=== PATIENT | female | born 1985 | race Caucasian/White ===

== ENCOUNTER 2017-10-16 07:53 | Emergency (ER) | payer SELFPAY ==
[~2017-10-16 07:53] MED LIST: DICL-86 PO; LORT5TAB PO; PENI500T PO; Z.0.NO CURRENT MEDS
[2017-10-16 07:55] VITALS: BP 115/67; PULSE 72; RESP 16; TEMP 98.5; O2SAT 96
[2017-10-16] MEDS ORDERED: RISP1 PO (08:10)
[2017-10-16] MEDS ORDERED: BUSP10TA PO (08:10)
[2017-10-16] MEDS ORDERED: TRAZ100T10 PO (08:10)
[2017-10-16] MEDS ORDERED: CLIN300C5 PO (08:13)
--- NOTE | 2017-10-16 08:13 | PD ---
HPI . Facial swelling Chief Complaint: Oral / Dental Pain or Problem Time Seen by Provider: 08:05 Travel History International Travel<30 days: No Contact w/Intl Traveler<30days: No Traveled to known affect area: No History of Present Illness HPI Patient presents with a chief complaint of a toothache. It started a few days ago. She developed facial swelling yesterday. Symptoms are getting progressively worse. Pain is rated 7/10. There are no modifying factors. No known associated fevers. PFSH Past Medical History Arthritis: Yes Blood Disorders: No Cancer: No Cardiovascular Problems: No Diminished Hearing: No Endocrine: No Gastrointestinal Disorders: No Genitourinary: No Immune Disorder: No Implanted Vascular Access Dvce: Yes Musculoskeletal: Yes Neurologic: No Psychiatric: No Reproductive: No Respiratory: No Tetanus Vaccination: Unknown ?: Not : 3 Para: 3 Miscarriage: 0 : 0 Tubal Ligation: Yes Past Surgical History Abdominal Surgery: No Body Medical Devices: titanium rods hip to knee Cardiac Surgery: No Section: Yes (X 3) Ear Surgery: No Endocrine Surgery: No Eye Surgery: No Genitourinary Surgery: No Gynecologic Surgery: No Neurologic Surgery: No Oral Surgery: Yes (CHIPPED TEETH) Pacemaker: No Thoracic Surgery: No Tonsillectomy: Yes Other Surgery: Yes (Pelvis graft to my femur) Social History Alcohol Use: Yes ("ONCE A WEEK") Tobacco Use: Yes ("ABOUT 5 CIGS PER DAY") Substance Use: No Allergies-Medications (Allergen,Severity, Reaction): Coded Allergies: morphine (Verified Allergy, Severe, n/v, 10/16/17) latex (Verified Allergy, Mild, Rash/HIVES, 10/16/17) Reported Meds & Prescriptions Reported Meds & Active Scripts Active Lortab 5/500 (Acetaminophen/Hydrocodone Bitart) 5 Mg/500 Mg Tab 1 Tab PO Q6HPRN Voltaren (Diclofenac Sodium) 75 Mg Tabec 75 Mg PO BID Pen Vk (Penicillin V Potassium) 500 Mg Tab 500 Mg PO QID 10 Days Reported No Current Meds (Miscellaneous Medication) Misc Review of Systems Except as stated in HPI: all other systems reviewed are Neg Physical Exam Narrative GENERAL: Awake and alert and in no acute distress. SKIN: Warm and dry. Normal color and turgor. HEAD: Normocephalic/atraumatic. EYES: Pupils are equal. Extraocular movements are intact. ENT: Left facial swelling. The skin is not red or hot. Extremely poor dentition. She has only 2 teeth on the top. They both appear to be canines. They both have significant cavities at the bases. The left maxillary tooth is tender to percussion. There is no edema or erythema of the gingiva. NECK: Normal range of motion. Supple. No cervical lymphadenopathy. CARDIOVASCULAR: Regular rate and rhythm. RESPIRATORY: Nonlabored respirations. Normal sats. MUSCULOSKELETAL: Atraumatic. Normal muscle tone. NEUROLOGICAL: A and O 3. Nonfocal. PSYCHIATRIC: Appropriate mood and affect. Data Data Last Documented VS Vital Signs Date Time Temp Pulse Resp B/P (MAP) Pulse Ox O2 Delivery O2 Flow Rate FiO2 10/16/17 07:55 98.5 72 16 115/67 (83) 96 MDM Medical Decision Making Medical Screen Exam Complete: Yes Emergency Medical Condition: Yes Differential Diagnosis Differential diagnosis of a toothache includes but is not limited to dental caries, dental abscess, gingivitis, drug-seeking behavior. Narrative Course Patient presents with a chief complaint of a toothache and now with facial swelling. On exam, she has a dental abscess secondary to very poor dentition. She will be discharged home with a prescription for clindamycin and with instructions to follow-up with a dentist. Diagnosis Primary Impression: Dental abscess Patient Instructions: General Instructions, Dental Abscess (ED) Departure Forms: Tests/Procedures Additional Instructions: Tylenol, ibuprofen or naproxen as needed for pain. Orajel also as needed for pain. Ice to your face as needed for pain and swelling. Antibiotics as directed. You will need to follow-up with a dentist. Scripts Clindamycin (Clindamycin) 300 Mg Cap 600 MG PO Q8H for Infection for 10 Days, #60 CAP 0 Refills Prov: Karma Fatima MD 10/16/17 Disposition: 01 DISCHARGE HOME Condition: Stable Karma Fatima MD Oct 16, 2017 08:13
[2017-10-16] MEDS ORDERED: PENI500T PO (09:44)
== END 2017-10-16 08:31 | disposition home or self-care (01) ==
LOC: PHED 07:53
DX: K04.7 Periapical abscess without sinus (principal); M19.90 Unspecified osteoarthritis, unspecified site; F17.210 Nicotine dependence, cigarettes, uncomplicated
CPT/HCPCS: 99283